=== PATIENT | female | born 1995 | race Caucasian/White ===

== ENCOUNTER 2020-04-21 13:54 | Inpatient (IN) | payer OTHER ==
[~2020-04-21] VITALS: Ht 154.9 cm; Wt 72.6 kg
[2020-04-21] MEDS ORDERED: NOVOLOG100 UNIT/1 SQ (14:01)
[2020-04-21] MEDS ORDERED: LANTUS SOL100 UNIT/1 SQ (14:01)
== END 2020-04-24 14:46 | disposition home or self-care (01) | DRG 639 ==
LOC: ER 13:54 → EMR PED 13:54 → ER 14:18 → ICU-2 16:30 → MEDJ 04-22 16:55
PROVIDERS: ADMIT Internal Medicine; ATTEND Internal Medicine
PROC: 4A033R1 Measurement of Arterial Saturation, Peripheral, Percutaneous Approach (ICD-10-PCS; principal; 2020-04-21)
DX: E10.10 Type 1 diabetes mellitus with ketoacidosis without coma (principal); E86.0 Dehydration; R11.0 Nausea; Z20.828 Contact with and (suspected) exposure to other viral communicable diseases